=== PATIENT | male | born 1995 | race Two or more races ===

== ENCOUNTER 2024-05-01 07:00 | Outpatient (CLI) | payer BC ==
--- NOTE | 2024-05-01 23:31 | XRAY Report ---
PROCEDURE: Ankle 3+V RT INDICATIONS: RIGHT ANKLE SPRAIN TECHNIQUE: 3 views of the ankle were acquired. COMPARISON: None. FINDINGS: Bones: No fractures or dislocations. Ankle mortise is normally aligned. No suspicious bony lesions . Soft tissues: Mild lateral ankle soft tissue swelling is seen. Moderate tibiotalar joint effusion. A chilles tendon appears normal. IMPRESSION: Lateral ankle soft tissue swelling. No acute ankle fracture or dislocation. Moderate tibiotalar joint effusion, no loose bodies. Reviewed by: Rhett Cazares MD on 05/01/2024 11:30 PM PDT Approved by: Rhett Cazares MD on 05/01/2024 11:30 PM PDT Station ID: [id number]
== END 2024-05-01 23:59 | disposition home or self-care (01) ==
LOC: DI.S 07:00
PROVIDERS: ATTEND Nurse Practitioner
DX: S93.401A Sprain of unspecified ligament of right ankle, initial encounter (principal); M25.471 Effusion, right ankle